=== PATIENT | male | born 1985 | race Caucasian/White ===

== ENCOUNTER 2016-10-31 03:39 | Emergency (ER) | payer OTHER ==
[~2016-10-31] VITALS: Ht 190.5 cm; Wt 111.9 kg
[~2016-10-31 03:39] MED LIST: ALUMCHW PO; PSEUTAB98 PO
[2016-10-31 03:41] VITALS: TEMP 36.5; Ht 190.5 cm; Wt 111.9 kg
[2016-10-31] MEDS ORDERED: CIPROFLOXACIN HCL 0.3% OP SOLN 2.5 ML BTL OT STA (04:13)
[2016-10-31] MEDS ORDERED: TRAMADOL HCL 50 MG TAB PO STA (04:13)
[2016-10-31] MEDS ORDERED: TRAMADOL HCL 50 MG HOME PACK PO ONE (04:15)
[2016-10-31] MEDS ORDERED: TRAM-10 PO (05:11)
[2016-10-31] MEDS ORDERED: CIPR0.3S OTR (05:11)
[2016-10-31] MEDS ORDERED: PRED50TA PO (05:11)
--- NOTE | 2016-10-31 05:11 | EMERGENCY ROOM VISIT NOTE ---
ED Visit Note First contact with patient: 03:54 Chief Complaint: Ear Ache History of Present Illness: Patient is a 30-year-old male who presents to the emergency Department by EMS for evaluation of his RIGHT ear pain. He reports that he had to the ostomy tubes placed 6 months ago. He has a significant past medical history of difficulty with his ears and subsequent otitis media infections. He follows with Dr. Ayala of [facility]. He reports that he has no medications to use this time. He reports no fevers or chills. He denies any headaches, dizziness, lightheadedness, nausea, vomiting, or neck pain /stiffness. He reports that his symptoms of pain started 2 days ago. He is tried [id number] medications with minimal relief of symptoms. He denies any discharge or drainage from the affected RIGHT ear. Medications: Reviewed and discussed with the patient. Allergies: Penicillins PMH: As above. SHx: Patient is a 30-year-old male who lives locally. ROS: All pertinent positive and negative review of systems are appropriately documented in the History of Present Illness. Physical Exam: VITAL SIGNS - Vital signs and nursing notes were reviewed. GENERAL - Well nourished, well developed 30-year-old male in no acute distress. Pt communicates well with provider and answers questions appropriately. SKIN - Without rash. HEAD - NC/AT with no obvious deformities. EYES - PERRL with EOMI bilaterally. Sclera without injection. Palpebral conjunctiva pink and moist. EARS - No deformities of external structures noted on gross examination bilaterally. No pain elicited with palpation of the tragus bilaterally. External auditory canals without discharge or otorrhea. RIGHT tympanic membrane with mild bulging. Tympanostomy tubes present bilaterally. No active discharge or drainage noted. NOSE - Midline and without cyanosis. No purulent drainage noted. Nasal mucosa without mucus discharge. MOUTH/OROPHARYNX - Without perioral cyanosis. Buccal mucosa pink and moist and without leukoplakia. Tongue midline with equal elevation of palate bilaterally. No tonsillar hypertrophy, erythema, or exudates noted. NECK - Neck with FROM. Supple to palpation. No lymphadenopathy noted. No nuchal rigidity. ED Course: Patient was seen and evaluated by myself. I had a lengthy discussion with the patient regarding his symptoms. He is provided Ciloxan drops for his ears as well as dose of prednisone and Ultram. He will placed on prednisone and Ultram as well as and Ciloxan drops for home. He will contact his ENT specialist tomorrow. He will return for any changing or worsening symptoms. Patient discharged home afebrile and in good condition. In the evaluation and treatment of this patient, the following differential diagnoses were considered: Bullous myringitis, otitis externa, otitis media, tympanic perforation, meningitis, cholesteatoma, malignancy, acoustic neuroma, amongst others. Impression: RIGHT Ear Pain Discharge Instructions: You've been seen in the emergency department today for your RIGHT ear pain. Please use the Ciloxan eardrops as prescribed. You have been prescribed Prednisone 50 mg to be taken orally once a day for the next 5 days. This is an anti-inflammatory medicine to be used to help minimize your symptoms. You should take the COMPLETE course of the medication. You have been prescribed Ultram to be used for pain control. You cannot drive or consume alcohol while on this medicine. This medicine should only be used for pain that cannot be controlled with qnxf-yww-[id number] pain medicines. For pain control, you can use the following rruk-ftq-fbqrkjf medicines (if >12 yo): - Regular strength (325mg/tab) Tylenol (acetaminophen) 2 tabs every 4-6 hours as needed. Do not exceed 12 tablets in a 24 hour period. Avoid taking more than 4 grams (4000 mg) of Tylenol per day. This includes any other sources of acetaminophen you may take on a regular basis. - Regular strength (200 mg/tab) Advil (ibuprofen) 1-2 tabs every 4-6 hours as needed. Do not exceed a dose of 3200 mg per day. Follow-up with your ENT provider this week. Return for any changing or worsening symptoms. Problem List Medical Problems: (1) Strep throat Status: Resolved Current/Historical Medications Scheduled Ciprofloxacin Hcl (Ophth) (Ciloxan Oph), 1 DROP OTR Q4H Prednisone (Prednisone), 50 MG PO DAILY Scheduled PRN Tramadol (Ultram), 1 TAB PO Q4H PRN for Pain Allergies Coded Allergies: Dust (Verified Allergy, Unknown, 10/31/16) Penicillins (Verified Allergy, Unknown, 10/31/16) Vital Signs Date Time Temp Pulse Resp B/P Pulse Ox O2 Delivery O2 Flow Rate FiO2 10/31/16 05:23 82 18 131/87 95 10/31/16 03:41 36.5 78 18 161/107 96 Room Air Medications Administered Medications (Trade) Dose Ordered Sig/Angella Route Start Time Stop Time Status Last Admin Dose Admin Tramadol HCl (Ultram Tab) 50 mg ONE STAT PO 10/31/16 04:13 10/31/16 04:16 DC 10/31/16 04:40 50 MG Ciprofloxacin HCl (Ciprofloxacin 0.3% Op Soln) 4 drops NOW STAT OT 10/31/16 04:13 10/31/16 04:16 DC 10/31/16 04:40 4 DROPS Prednisone (PredniSONE TAB) 60 mg NOW STAT PO 10/31/16 04:17 10/31/16 04:18 DC 10/31/16 04:39 60 MG Departure Information Impression Primary Impression: Ear pain, right Dispostion Home / Self-Care Condition GOOD Prescriptions Prednisone (Prednisone) 50 Mg Tab 50 MG PO DAILY for 4 Days, #4 TAB Prov: Jonathan Lechuga PA-C 10/31/16 Ciprofloxacin Hcl (Ophth) (CILOXAN OPH) 0.3 % Emelia 1 DROP OTR Q4H for 7 Days, #1 BTL Prov: Jonathan Lechuga PA-C 10/31/16 Tramadol (Ultram) 50 Mg Tab 1 TAB PO Q4H Y for Pain, #12 TAB For Initial Treatment Prov: Jonathan Lechuga PA-C 10/31/16 Referrals Reji Duran M.D. (PCP) Patient Instructions My [facility] Additional Instructions You've been seen in the emergency department today for your RIGHT ear pain. Please use the Ciloxan eardrops as prescribed. You have been prescribed Prednisone 50 mg to be taken orally once a day for the next 5 days. This is an anti-inflammatory medicine to be used to help minimize your symptoms. You should take the COMPLETE course of the medication. You have been prescribed Ultram to be used for pain control. You cannot drive or consume alcohol while on this medicine. This medicine should only be used for pain that cannot be controlled with uwah-hnz-kaqpjwr pain medicines. For pain control, you can use the following rhij-ule-ksxiajn medicines (if >12 yo): - Regular strength (325mg/tab) Tylenol (acetaminophen) 2 tabs every 4-6 hours as needed. Do not exceed 12 tablets in a 24 hour period. Avoid taking more than 4 grams (4000 mg) of Tylenol per day. This includes any other sources of acetaminophen you may take on a regular basis. - Regular strength (200 mg/tab) Advil (ibuprofen) 1-2 tabs every 4-6 hours as needed. Do not exceed a dose of 3200 mg per day. Follow-up with your ENT provider this week. Return for any changing or worsening symptoms.
[2016-10-31 05:23] VITALS: BP 131/87; PULSE 82; O2SAT 95
== END 2016-10-31 05:17 | disposition home or self-care (01) ==
LOC: EDBD 03:39 → C.EDC 03:40
DX: H92.01 Otalgia, right ear (principal); Z88.0 Allergy status to penicillin; Z91.09 Other allergy status, other than to drugs and biological substances